=== PATIENT | female | born 2000 | race Caucasian/White ===

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

== ENCOUNTER 2019-01-25 15:45 | Emergency (ER) | payer BC ==
[~2019-01-25] VITALS: Ht 162.6 cm; Wt 69.9 kg
[~2019-01-25 15:45] MED LIST changes: +IBUP-1542 PO; +TRAM50TA2 PO
[2019-01-25 16:12] VITALS: Ht 162.6 cm; Wt 69.9 kg
[2019-01-25] MEDS ORDERED: KETOROLAC 30 MG INJ IM STA (17:05)
--- NOTE | 2019-01-25 17:15 | ERD ---
ER Documentation Chief Complaint Chief Complaint MIDDLE BACK PAIN, SOB, PAIN WITH BREATHING HPI 19-year-old female with no reported past medical surgical history who presents with multitude of complaints including mid to lower back pain, intermittent shortness of breath over the past several weeks. States she has had bouts of shortness of breath over the past several weeks but worsened yesterday prompting ED visit. Shortness of breath made worse with deep inhalation, associated with dry nonproductive cough and sore throat. she denies chest pain, palpitations, fevers, chills, no URI type symptoms such as rhinorrhea, head congestion, sinus pressure. Has had intermittent nausea and mild posterior headache but no episodes of vomiting or abdominal pain. No vision changes with headaches and no reported history of headaches. She has never seen a doctor for these symptoms despite reporting the symptoms on and off over the past several years. With regards to her back pain she also describes this is intermittent mid to lower back pain that is bilateral without radiation to the lower extremity, without lower extremity paresthesias or weakness. She denies recent injury or fall. She otherwise denies urinary symptoms such as burning, itching, frequency, vaginal bleeding or discharge. At time of examination patient is nontoxic- appearing answering all questions appropriately. ROS All systems reviewed and are negative except as per history of present illness. Medications Home Meds Active Scripts Naproxen* (Naprosyn*) 500 Mg Tablet, 500 MG PO BID PRN for PAIN AND/OR INFLAMMATION, #30 TAB Prov:ROMY RUIZ PA-C 01/25/19 Tramadol HCl (Tramadol HCl) 50 Mg Tablet, 50 MG PO Q6 PRN for SEVERE PAIN LEVEL 7-10, #20 TAB Prov:MICHELL SPAIN NP 09/22/16 Ibuprofen* (Motrin*) 600 Mg Tab, 600 MG PO Q6H PRN for PAIN AND OR ELEVATED TEMP, #30 TAB Prov:MICHELL SPAIN NP 09/22/16 Reported Medications Vits #90-Iron Fum-FA ( Formula) 1 Each Tablet, 1 EACH PO DAILY 12/23/13 Allergies Allergies: Coded Allergies: No Known Allergy (Unverified , 09/22/16) FmHx Family History: No diabetes, No coronary disease, No other Physical Exam Vitals Vital Signs Date Temp Pulse Resp B/P (MAP) Pulse Ox O2 O2 Flow FiO2 Time Delivery Rate 01/25/19 100.0 110 17 136/76 100 16:12 (96) Physical Exam I have reviewed the triage vital signs. Const: Well nourished, well developed, appears stated age Eyes: PERRL, no conjunctival injection HENT: NCAT, Neck supple without meningismus, posterior pharyngeal wall mild erythema mild swelling, no petechiae no discharge CV: RRR, Warm, well-perfused extremities RESP: CTAB, Unlabored respiratory effort GI: soft, non-tender, non-distended, no masses MSK: No gross deformities appreciated Skin: Warm, dry. No rashes Neuro: grossly non focal Psych: Appropriate mood and affect. Results 24 hrs Laboratory Tests Test 01/25/19 17:38 01/25/19 17:39 01/25/19 17:40 Bedside Urine pH (LAB) 6.0 Bedside Urine Protein (LAB) 1+ Bedside Urine Glucose (UA) Negative Bedside Urine Ketones (LAB) 1+ Bedside Urine Blood Trace-intact Bedside Urine Nitrite (LAB) Negative Bedside Urine Leukocyte Esterase 1+ (L POC Beta HCG, Qualitative NEGATIVE Urine Color YELLOW Urine Clarity SLIGHTLY CLOUDY Urine pH 6.0 Urine Specific Wayne 1.024 Urine Ketones 1+ mg/dL Urine Nitrite NEGATIVE mg/dL Urine Bilirubin NEGATIVE mg/dL Urine Urobilinogen 2+ mg/dL Urine Leukocyte Esterase 1+ Kierra/ul Urine Microscopic RBC 3 /HPF Urine Microscopic WBC 3 /HPF Urine Squamous Epithelial Cells FEW /HPF Urine Bacteria FEW /HPF Urine Mucus MANY /HPF Urine Hemoglobin NEGATIVE mg/dL Urine Glucose NEGATIVE mg/dL Urine Total Protein NEGATIVE mg/dl Current Medications Medications Dose Sig/Shanita Start Time Status Last (Trade) Ordered Route PRN Stop Time Admin Dose Reason Admin Ketorolac 30 mg ONCE STAT 01/25/19 DC 01/25/19 Tromethamine IM 17:05 17:55 (Toradol) 01/25/19 17:08 Procedures/MDM 19-year-old female with number of complaints including shortness of breath, headache, lower back pain. Appropriate work-up in ED has been identified and emergent etiology to her symptoms. ED course/plan: Chest x-ray without acute finding UA unremarkable DISPOSITION PLAN: We discussed follow up with the patient's primary care doctor within 24 to 48 hours. Patient counseled regarding my diagnostic impression and care plan. Prior to discharge all questions answered. Pt agrees with treatment plan and understands strict return precautions. Precautionary instructions provided including instructions to return to the ER if not improving or for any worsening or changing symptoms or concerns. Disclaimer: Inadvertent spelling and grammatical errors are likely due to EHR/dictation software use and do not reflect on the overall quality of patient care. Also, please note that the electronic time recorded on this note does not necessarily reflect the actual time of the patient encounter. Departure Diagnosis: Primary Impression: SOB (shortness of breath) Additional Impression: Back pain Condition: Stable Patient Instructions: Back Pain (Acute Or Chronic) Referrals: [facility] YOU HAVE RECEIVED A MEDICAL SCREENING EXAM AND THE RESULTS INDICATE THAT YOU DO NOT HAVE A CONDITION THAT REQUIRES URGENT TREATMENT IN THE EMERGENCY DEPARTMENT. FURTHER EVALUATION AND TREATMENT OF YOUR CONDITION CAN WAIT UNTIL YOU ARE SEEN IN YOUR DOCTORS OFFICE WITHIN THE NEXT 1-2 DAYS. IT IS YOUR RESPONSIBILITY TO MAKE AN APPOINTMENT FOR FOLOW-UP CARE. IF YOU HAVE A PRIMARY DOCTOR --you should call your primary doctor and schedule an appointment IF YOU DO NOT HAVE A PRIMARY DOCTOR YOU CAN CALL OUR PHYSICIAN REFERRAL HOTLINE AT IF YOU CAN NOT AFFORD TO SEE A PHYSICIAN YOU CAN CHOSE FROM THE FOLLOWING [facility] [address] [facility]. [facility] [address] [facility]. [facility] [address] [facility]. [facility] [address] [facility] [facility]. [facility] [address] [facility]. [facility]. [address] Additional Instructions: Call your primary care doctor TOMORROW for an appointment during the next 2-3 days.See the doctor sooner or return here if your condition worsens before your appointment time. ROMY RUIZ PA-C January 25, 2019 17:15
[2019-01-25] MEDS ORDERED: NAPR-985 PO (18:19)
[2019-01-25 19:34] VITALS: BP 108/64; PULSE 88; RESP 18
== END 2019-01-25 19:35 | disposition home or self-care (01) ==
LOC: FTE 15:45
DX: R06.02 Shortness of breath (principal); M54.5 Low back pain
CPT/HCPCS: 71046; 81001; 81025; 87880; 93005; 96372; 99285; J1885; 81003